=== PATIENT | male | born 1955 | race Caucasian/White ===

== ENCOUNTER → 2020-08-30 14:10 | Outpatient (BNVA) | payer MEDICARE, MEDICAID, SELFPAY | PROVIDERS: PCP Internal Medicine; Referring Provider Internal Medicine; Visit Provider Family Medicine Adult Medicine | DX: M54.16 Radiculopathy, lumbar region (principal); C02.9 Malignant neoplasm of tongue, unspecified | CPT/HCPCS: 99202 ==

== ENCOUNTER → 2020-09-18 11:48 | Outpatient (BNVA) | payer MEDICARE, MEDICAID, SELFPAY | PROVIDERS: PCP Internal Medicine; Referring Provider Internal Medicine; Visit Provider Family Medicine Adult Medicine | DX: M54.16 Radiculopathy, lumbar region (principal); F11.10 Opioid abuse, uncomplicated | CPT/HCPCS: 99212 ==

== ENCOUNTER 2020-11-10 08:41 | Emergency (ER) | payer MEDICARE, MEDICAID, SELFPAY ==
[2020-11-10 08:49] VITALS: BP 150/78; PULSE 64; RESP 20; TEMP 36.8; O2SAT 97; BMI 24.4
--- NOTE | 2020-11-10 08:52 | ED_ITS ---
HPI - General Adult General Chief complaint: Abdominal Pain Stated complaint: Abdominal pain/ Vomiting Time Seen by Provider: 11/10/20 08:46 Source: EMS Mode of arrival: EMS Limitations: no limitations History of Present Illness HPI narrative: This is a 65-year-old male with history of arthritis, gastroesophageal reflux disease lumbar radiculopathy chronic opiate abuse as well as apparently tongue cancer being followed by pain management here and being treated of with radiation therapy for tongue cancer at the [facility] complaint nausea and vomiting in the epigastrium with associated abdominal pain since last night. He otherwise denies any recent travel or recent illness. Denies any weight loss or weight gain. Related Data Home Medications Medication Instructions Recorded Confirmed calcium carbonate 200 mg calcium 200 mg PO BID 08/30/20 09/18/20 (500 mg) chewable tablet omeprazole magnesium 20 mg 20 mg PO DAILY 08/30/20 09/18/20 tablet,delayed release ibuprofen 800 mg tablet 800 mg PO TID 09/18/20 09/18/20 Previous Rx's Medication Instructions Recorded buprenorphine 8 mg-naloxone 2 mg 1 film SUBLINGUAL DAILY 7 Days #14 10/03/20 sublingual film ea omeprazole magnesium [Prilosec OTC] 20 mg PO BID 7 Days #14 tab 11/10/20 ondansetron HCl [Zofran] 4 mg PO Q8H PRN #10 tab 11/10/20 Allergies Allergy/AdvReac Type Severity Reaction Status Date / Time penicillin G [Penicillin G] Allergy Severe ANAPHYLAXIS Verified 09/18/20 12:04 bee pollen [BEE STINGS] Allergy Unknown SWELLING Verified 09/18/20 12:04 Review of Systems Review of Systems: Constitutional: No Weight loss, No Fever, No Chills, No Night Sweats, No Fatigue, No Malaise ENT/Mouth: No Hearing loss, No Ear Pain, No Nasal Congestion, No Sinus Pain, No Hoarseness, No sore throat, No Rhinorrhea, No Swallowing Difficulty Eyes: No Eye Pain, No Swelling, No Redness, No Foreign Body, No Discharge, No Vision Changes Cardiovascular: No Chest Pain, No SOB, No Dyspnea on Exertion, No Orthopnea, No Edema, No Palpitations Respiratory: No Cough, No Sputum, No Wheezing, No Dyspnea Gastrointestinal: As noted in HPI Genitourinary: No Dysuria, No Urinary Frequency, No Hematuria, No Urinary Incontinence, No Urgency, No Flank Pain Musculoskeletal: No joint pain, No Myalgias, No Joint Swelling Skin: No Skin Lesions, No rash Neuro: No Weakness, No Numbness, No Paresthesias, No Loss of Consciousness, No Dizziness, No Headache Psych: No Social Issues Heme/Lymph: No Bruising, No Bleeding,No Lymphadenopathy Endocrine: No Polyuria, No Polydipsia, No Temperature Intolerance Yes all other systems are reviewed and are negative [facility] Past Medical History Medical History (Updated 11/11/20 @ 00:00 by Ashley Skaggs) Arthritis Cancer of tongue GERD (gastroesophageal reflux disease) Opioid abuse Right lumbar radiculopathy Social History Social History (Updated 08/30/20 @ 15:26 by Gilberto Jewell DO) Alcohol intake: never Smoking Status: Current every day smoker Use of substances other than those prescribed or required for medical reasons: No Advance Directives: No Advance Directives Information Provided: No 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 Physical Exam Vital Signs: Vital Signs: Last Vital Signs Temp 98.3 F 11/10/20 16:00 Pulse 66 11/10/20 16:00 Resp 16 11/10/20 16:00 BP 157/84 H 11/10/20 16:00 Pulse Ox 100 11/10/20 16:00 Body Mass Index 24.4 Reviewed Const: General: in distress (Due to pain, does appear anxious type) mild; No intoxicated appearing Nutritional Appearance: average body habitus Orientation/consciousness: patient oriented x3 HENMT: Head: Yes normal to inspection Ears: hearing grossly normal b ilaterally Eyes: General: appearance normal, both eyes and all related structures Visual Francisco: normal visual francisco by confrontation Neck: Neck: Yes normal visual inspection, No positive Brudzinski's sign, No positive Kernig's sign and No tender Thyroid: Thyroid normal Chest: Chest palpation & inspection: normal inspection of the chest Resp: Effort & Inspection: normal respiratory effort Auscultation: clear to auscultation bilaterally Cardio: Jugular venous distension: no JVD Rhythm: regular rhythm Heart sounds: S1 normal heart sound present and S2 normal heart sound present GI: Inspection: Yes normal to inspection Palpation (GI): Soft to palpation Percussion: Yes normal to percussion Auscultation: normal bowel sounds : General: Yes no CVA tenderness Back/Spine/Pelvis: Back: no CVA tenderness Skin: General skin exam: no rashes or lesions noted Neuro: General: patient oriented x3 Extrem: General: Yes normal to inspection Course Course Course Narrative: In review unfortunate 65-year-old male with history of tongue CA currently undergoing radiation at [facility] being followed by [facility] [place] has chronic pain in relation to this being followed by pain management here and his primary care this is somewhat complicated by his history of opiate abuse with med seeking type behaviors. Directly upon arrival seems agitated states he has a lot of pain and does not understand why he has to wait through the triage process to get his IV pain medicine. He specifically declined p.o. medicine shirley t feels that IV Dilaudid works better. Given this workup was initiated including labs CT of the abdomen pelvis and pain management with Dilaudid and antiemetic. Patient was monitored in the ED resting comfortably about 45 minutes past became agitated again stated that he needs more pain medication offered p.o. declined this, being accusatory stating that not properly treating his pain he was again given another dose of IV Dilaudid while awaiting the CT results abdomen pelvis in the meantime in between he ambulated to bathroom without problem drinking fluids. CT of the abdomen pelvis with IV contrast did not show any acute intra-abdominal process. Did show mild constipation. There was new pulmonary nodule in the right lower lobe not seen previously thus CT of the chest given history of CA rule out Mets and again he demanded IV medication advised that a Po will with work better and last longer reluctantly he took the OxyContin 20 mg p.o. which he is prescribed. He does report to me that it is the weekend and does not feel that he has enough medication at home and needs a new prescription for pain medicine. [place] prescription monitoring program reviewed has been getting regular pain medication and several prescriptions in the last week or so most recently 3 days ago he was given 20 mg OxyContin 42 tablets for [address]. [address] of the chest did not show any acute findings as he has been resting comfortably in the ED for last 1 hour I went over to bedside to review his findings with him he has agreeable requesting another narcotic prescription for home. Given that he is enrolled in pain management and also has had multiple prescription refills and most recently 3 days ago for 7 day supply of 20 mg OxyContin and his history my strong suspicion for misuse of his prescriptions and he does state to me has 14 tablets of this left. Advised that no additional scripts will be provided to him for narcotics alternative could be provided which he declined. Will discharge home with short course PPI, Zofran and follow up with his primary care, pain management and [facility]. Medical Decision Making Lab Data Result diagrams: 11/10/20 09:01 11/10/20 09:01 Labs: Lab Results 11/10/20 11/10/20 11/10/20 Range/Units 09:01 09:01 09:01 WBC 6.1 (4.8-10.8) X10*3/uL RBC 4.28 L (4.60-5.80) X10*6/uL Hgb 13.4 L (14.0-18.0) g/dl Hct 40.1 L (42-52) % MCV 93.7 (80-98) fL MCH 31.3 (27.0-33.0) pg MCHC 33.4 (31.0-36.0) g/dl RDW 12.6 (11.0-16.0) % Plt Count 275 (160-400) X10*3/uL MPV 9.2 L (9.4-12.4) fL Immature Gran % (Auto) 0.2 (0.0-0.4) % Neut % (Auto) 85.4 H (45-73) % Lymph % (Auto) 6.6 L (20-40) % Forest % (Auto) 7.3 (2-11) % Eos % (Auto) 0.2 (0-4) % Baso % (Auto) 0.3 (0-2) % Lymph # (Auto) 0.4 L (1.2-4.9) X10*3/uL Forest # (Auto) 0.4 (0.1-1.2) X10*3/uL Eos # (Auto) 0.0 (0.0-0.4) X10*3/uL Baso # (Auto) 0.0 (0.0-0.2) X10*3/uL Abs Immat Gran (auto) 0.01 (0.00-0.03) X10*3/uL Absolute Neuts (auto) 5.2 (2.0-8.3) X10*3/uL Absolute Nucleated RBC 0.000 (0.0-0.012) X10*3/uL Nucleated RBC % (auto) 0.0 (0.0-0.2) /100WBC Smear Tech's Comments VERIFIED PT 11.6 (10.8-13.0) SEC INR 1.0 (0.9-1.1) APTT 33.1 (24.1-38.0) SEC Sodium 140 (135-145) mmol/L Potassium 4.1 (3.3-5.1) mmol/L Chloride 105 (96-108) mmol/L Carbon Dioxide 22 (22-29) mmol/L Anion Gap 17 (12-20) BUN 21 H (9-16) mg/dL Creatinine 0.82 (0.5-1.4) mg/dL Estim Creat Clear Calc 98.2 Estimated GFR > 60 Random Glucose 154 H (60-115) mg/dL Calcium 9.9 (8.4-10.2) mg/dL Total Bilirubin 0.7 (0.0-1.0) mg/dL AST 17 (5-37) U/L ALT 11 (0-40) U/L Alkaline Phosphatase 66 (39-117) U/L Total Protein 7.5 (6.5-8.0) g/dL Albumin 4.5 (3.5-5.0) g/dL Discharge Plan Discharge Clinical Impression: Nausea & vomiting Patient Disposition: Home, Self-Care Instructions: Acute Nausea and Vomiting (ED) Additional Instructions: Please follow-up with oncology team on Thursday Follow-up with pain management on Thursday as well He filled a 7 day supply of your pain medications 3 days ago you have remainder 4 days Please take medication only as prescribed Please take your anti nausea medication prescribed (Zofran) Take your anti acid medication prescribed (Prilosec) Return if any concerns or worsening symptoms Thank you Prescriptions: New omeprazole magnesium [Prilosec OTC] 20 mg tablet,delayed release (DR/EC) 20 mg PO BID 7 Days Qty: 14 RF: 0 ondansetron HCl [Zofran] 4 mg tablet 4 mg PO Q8H PRN (Reason: nausea and vomiting) Qty: 10 RF: 0 No Action buprenorphine-naloxone [Suboxone] 8-2 mg film 1 film sublingual DAILY 7 Days Qty: 14 RF: 0 ibuprofen 800 mg tablet 800 mg PO TID RF: 0 omeprazole magnesium [Prilosec OTC] 20 mg tablet,delayed release (DR/EC) 20 mg PO DAILY RF: 0 calcium carbonate [Tums] 200 mg calcium (500 mg) tablet,chewable 200 mg PO BID RF: 0 Referrals: Kishore Jones MD [Primary Care Provider] - 1 week Interventions: ED Discharge Assessment Last Done: 11/10/20 16:02 Discharge Date/Time: 11/10/20 16:05
[2020-11-10 09:06] LABS: Basophils Percent Auto 0.3 % (0-2); Eosinophils Percent Auto 0.2 % (0-4); Hematocrit 40.1 % (42-52); Hemoglobin 13.4 g/dl (14.0-18.0); Imm Gran Abs Auto 0.01 X10*3/uL (0.00-0.03); Imm Gran Pct Auto 0.2 % (0.0-0.4); Lymphocytes Absolute Auto 0.4 X10*3/uL (1.2-4.9); Lymphocytes Percent Auto 6.6 % (20-40); MANUAL DIFF FLAG SCAN; Mean Corpuscular HGB Conc 33.4 g/dl (31.0-36.0); Mean Corpuscular Hemoglobin 31.3 pg (27.0-33.0); Mean Corpuscular Volume 93.7 fL (80-98); Mean Platelet Volume 9.2 fL (9.4-12.4); Monocytes Absolute Auto 0.4 X10*3/uL (0.1-1.2); Monocytes Percent Auto 7.3 % (2-11); Neutrophils Absolute Auto 5.2 X10*3/uL (2.0-8.3); Neutrophils Percent Auto 85.4 % (45-73); Platelet Count 275 X10*3/uL (160-400); Red Blood Count 4.28 X10*6/uL (4.60-5.80); Red Cell Distribution Width 12.6 % (11.0-16.0); SCAN SMEAR FLAG 1; White Blood Count 6.1 X10*3/uL (4.8-10.8)
[2020-11-10] MEDS: 0.9 % Sodium Chloride 1,000 ML 999 ML IV (09:08)
[2020-11-10] MEDS: Lidocaine HCl Viscous 2 % 15 ML SOLUTION 10 ML MUCOUS MEM (09:09)
[2020-11-10] MEDS: LORazepam 2 MG/ML VIAL 0.5 MG IVPUSH (09:09)
[2020-11-10] MEDS: Magnesium Hydrox/Alum Hydrox 30 ML ORAL.SUSP PO (09:09)
[2020-11-10] MEDS: HYDROmorphone HCl 1 MG/ML SYRINGE IVPUSH (09:09)
[2020-11-10] MEDS: ondansetron HCL 4 MG/2 ML VIAL IVPUSH (09:09)
[2020-11-10 09:13] LABS: Prothrombin Time 11.6 SEC (10.8-13.0)
[2020-11-10 09:15] LABS: Partial Thromboplastin Time 33.1 SEC (24.1-38.0)
[2020-11-10 09:23] LABS: SLIDE REVIEW VERIFIED
[2020-11-10 09:33] LABS: Alanine Aminotransferase 11 U/L (0-40); Albumin Level 4.5 g/dL (3.5-5.0); Alkaline Phosphatase 66 U/L (39-117); Anion Gap 17 (12-20); Aspartate Amino Transferase 17 U/L (5-37); Bilirubin Total 0.7 mg/dL (0.0-1.0); Blood Urea Nitrogen 21 mg/dL (9-16); Calcium 9.9 mg/dL (8.4-10.2); Carbon Dioxide 22 mmol/L (22-29); Chloride 105 mmol/L (96-108); Creatinine Clr Calc Pharmacy 98.2; Estimated Glomerular Filt Rate > 60; Glucose Random 154 mg/dL (60-115); Potassium 4.1 mmol/L (3.3-5.1); Sodium 140 mmol/L (135-145); Total Protein 7.5 g/dL (6.5-8.0)
--- NOTE | 2020-11-10 10:36 | PC.NURSE ---
pt sleeping since medicated.
[2020-11-10 10:37] VITALS: O2SAT 98
--- NOTE | 2020-11-10 11:06 | CT_ITS ---
EXAMINATION: CT ABDOMEN AND PELVIS WITH CONTRAST CLINICAL INFORMATION: Abdominal pain. COMPARISON: None TECHNIQUE: Multidetector volumetric images were obtained from the superior aspect of the liver through the pubic symphysis following administration 85 mL of Omnipaque 350 intravenous contrast. Sagittal and coronal reformatted images were obtained on the technologist's workstation. Oral contrast: No This CT examination was performed using dose optimization techniques as appropriate, variously including the following: *Automated exposure control *Adjustment of mA and/or kV according to patient size (this includes techniques or standardized protocols for targeted exams where dose is matched to indication/reason for exam; i.e. extremities or head) *Use of iterative reconstruction technique DLP: 541 mGy-cm FINDINGS: LUNG BASES: The lung bases are hyperinflated but no acute process seen. 3 mm nodule is seen in right lower lobe on axial image 1/7. It is new since previous CT chest 10/01/2019. No additional nodules seen. There is minimal atelectatic changes right lower lobe. Heart size is normal. LIVER, GALLBLADDER, AND BILIARY TREE: The liver is enlarged in size, normal shape and density. There is a punctate 4 mm calcification right hepatic lobe adjacent to the diaphragm on axial image 12/3. No intrahepatic ductal dilatation seen. The gallbladder is distended with no evidence of radiopaque gallstones, gallbladder wall thickening, or obvious pericholecystic inflammatory changes. PANCREAS: Unremarkable. SPLEEN: Unremarkable. ADRENAL GLANDS: There is a 1.7 cm left adrenal nodule measuring 26 Hounsfield units., Stable. The right adrenal gland appears unremarkable. KIDNEYS AND URETERS: The kidneys are normal in size, shape, and attenuation. No hydronephrosis, hydroureter, or calculi seen. No perinephric stranding. BLADDER: Unremarkable. GASTROINTESTINAL TRACT: There is scattered stool and gas seen throughout the colon without distention. The small bowel loops are normal caliber. Appendix is not visualized. No free air or free fluid seen. ABDOMINAL WALL: There is a right anterior abdomen wall hernia repair with mesh in place. No recurrent hernia seen. LYMPH NODES: Normal. VASCULAR: Unremarkable. PELVIC VISCERA: Unremarkable. OSSEOUS STRUCTURES: There is a right intraforaminal medullary justa likely for an old fracture. There are degenerative disc changes and vacuum disc phenomenon with spondylosis at every disc level. CT/CT abdomen pelvis w con IMPRESSION: No acute intra-abdominal process seen. Mild constipation. Appendix is not seen. No bowel obstruction. New pulmonary nodule right lower lobe not seen previously. Stable left adrenal enhancing 1.7 cm nodule. Evidence of right lower anterior abdominal wall hernia repair with mesh in place. No recurrent hernia seen.
[2020-11-10] MEDS: HYDROmorphone HCl 0.5 MG/0.5 ML SYRINGE IVPUSH (11:24)
[2020-11-10 11:26] VITALS: BP 148/77; PULSE 63; RESP 20; TEMP 36.8; O2SAT 99
--- NOTE | 2020-11-10 11:30 | PC.NURSE ---
patient a&ox3, patient c/o severe 10/10 abd pain, pt medicated for pain per order, pt requesting baking soda water, will speak with provider, vss, will continue to monitor.
--- NOTE | 2020-11-10 11:44 | PC.NURSE ---
pt to ct scan
[2020-11-10] MEDS: iohexoL 350 MG/ML 100 ML INFUS..BTL IV (11:49)
--- NOTE | 2020-11-10 12:38 | PC.NURSE ---
patient ambulating up and down hallways moaning due to abd pain, pt has steady gait while ambulating, pt awaiting ct scan results, will continue to monitor.
--- NOTE | 2020-11-10 13:03 | CT_ITS ---
EXAMINATION: CT CHEST WITHOUT CONTRAST CLINICAL INFORMATION: 65-year-old male patient with history of throat cancer. COMPARISON: CT the chest on 10/01/2019. CT of the abdomen and pelvis done earlier today. TECHNIQUE: Multidetector volumetric CT imaging of the chest was done. Axial MIP volume rendering provided. Sagittal, coronal, and MIP axial reformatted images were obtained. This CT examination was performed using dose optimization techniques as appropriate, variously including the following: *Automated exposure control *Adjustment of mA and/or kV according to patient size (this includes techniques or standardized protocols for targeted exams where dose is matched to indication/reason for exam; i.e. extremities or head) *Use of iterative reconstruction technique DLP: 317 mGy-cm FINDINGS: OCCUPATIONAL THERAPY SUPERVISOR: Hyperaerated lungs. LUNGS: The following observations are enumerated: 1. Calcified 0.2 cm nodule apex right lung. Series 9, image 72. No change. 2. Slightly spiculated peripheral 0.4 cm nodule anterior segment right upper lobe. Series 9, image 271. No change. 3. Ovoid 0.3 cm peripheral nodule right lower lobe. Series 9, image 374. No change. 4. Linear scarring right lower lobe. Series 9, images 291-364. 5. Focal pleural thickening and scarring posterior right costophrenic sulcus medial right hemithorax. Series 9, image 471. Series 7, image 78. Similar. 6. Apical pleural thickening left apex. Series 9, image 52. No change. 7. Minor scarring lingular inferior segment of the left upper lobe. Series 9, image 462. No change. 8. A 0.3 cm soft tissue nodule left lower lobe peripherally. Series 9, image 350. No change. MEDIASTINUM: The mediastinum is normal. No lymphadenopathy. PLEURA: There is no pleural effusion. No pleural mass or thickening. There is a small fat containing diaphragmatic hernia involving the posterior medial aspect of the left hemidiaphragm. Series 7, image 54. Series 6, image 68. AXILLA: No lymphadenopathy. UPPER ABDOMEN: Contrast fills both renal collecting systems from the previous IV injection done earlier today. Small left adrenal nodule as previously described. Focal liver capsular calcification beneath the dome of the right hemidiaphragm. OSSEOUS STRUCTURES: Compression fracture T4 vertebral body. Multiple healed right-sided rib fractures CT/CT chest wo con IMPRESSION: No suspicious metastatic disease in the lungs.
[2020-11-10] MEDS: oxyCODONE HCl ER 10 MG TAB.ER.12H 20 MG PO (13:13)
--- NOTE | 2020-11-10 13:17 | PC.NURSE ---
patient was again medicated with po meds for pain, patient continuously asking for additional pain medications with a c/o 10/10 abdominal pain, pt gets oob and is ambulating with steady gait in hallways despite his 10/10 pain, vitals remain stable, will continue to monitor.
[2020-11-10 13:18] VITALS: BP 151/72; PULSE 64; RESP 20; TEMP 36.8; O2SAT 98
--- NOTE | 2020-11-10 15:18 | PC.NURSE ---
patient attention seeking, ambulating in the hallway moaning loudly due to his complaint of abdominal pain but only only when near staff.
[2020-11-10 16:00] VITALS: BP 157/84; PULSE 66; RESP 16; TEMP 36.8; O2SAT 100
== END 2020-11-10 16:05 | disposition home or self-care (01) ==
PROVIDERS: Nurse Practitioner Primary Care; Emergency Provider Emergency Medicine; PCP Internal Medicine
DX: R11.2 Nausea with vomiting, unspecified (principal); F11.20 Opioid dependence, uncomplicated; Z76.5 Malingerer [conscious simulation]; C02.9 Malignant neoplasm of tongue, unspecified; K21.9 Gastro-esophageal reflux disease without esophagitis; Z92.3 Personal history of irradiation
CPT/HCPCS: 36415; 71250; 74177; 80053; 85025; 85610; 85730; 96361; 96374; 96375; 96376; 99284; J1170; J2060; J2405; Q9967

== ENCOUNTER 2021-10-14 11:42 | Outpatient (REF) | payer OTHER, MEDICAID, SELFPAY ==
[2021-10-14 12:34] LABS: Influenza A PCR NEGATIVE (Negative); Influenza B PCR NEGATIVE (Negative); Resp Syncy Virus RNA Qual PCR NEGATIVE (Negative); SARS COV2 PCR INHOUSE NEGATIVE (Negative)
== END 2021-10-14 11:43 | disposition home or self-care (01) ==
LOC: HO.LNP 11:42
PROVIDERS: Visit Provider Internal Medicine
DX: Z20.822 Contact with and (suspected) exposure to COVID-19 (principal); J02.9 Acute pharyngitis, unspecified
CPT/HCPCS: 0241U

== ENCOUNTER 2021-12-10 12:05 | Outpatient (REF) | payer OTHER, MEDICAID, SELFPAY ==
--- NOTE | ~2021-12-10 | PE_ITS ---
EXAMINATION: Fluorine-18 FDG PET/CT Scan CLINICAL INDICATION: Subsequent treatment management.. Larynx cancer, status post radiation therapy November,. PROCEDURE: 85 minutes following the intravenous administration of 9.0 mCi of fluorine 18 FDG, images from the base of the skull to the mid thighs were obtained using a combined PET/CT scanner with CT scan based attenuation correction. No oral contrast was administered. No intravenous contrast was administered. Transverse, coronal, sagittal, and volume reconstruction projections were obtained. The patient's blood glucose as determined by a finger stick, was 108 mg/dl immediately prior to injection. Total CT exam dose-length product 278.18 mGy-cm * These CT images were obtained using dose optimization techniques as appropriate, variously including the following: Automated exposure control * Adjustment of mA and/or kV according to patient size (this includes techniques or standardized protocols for targeted exams where dose is matched to indication/reason for exam; i.e. extremities or head) * Use of iterative reconstruction technique COMPARISON: No previous PET/CT scan is available for comparison. CT scans of the chest, abdomen and pelvis dated 11/10/2020 are available for comparison. FINDINGS: (Slice numbers described in this report are numbered superiorly to inferiorly with slice #1 in the head) NECK AND VISUALIZED HEAD: There is an FDG avid right supraglottic soft tissue density which extends from the right arytenoid cartilage superiorly to the inferior aspect of the right vallecula. This shows SUVmax 7.9, slice 59/267. The abnormal FDG activity approaches but does not cross the midline. There are no additional foci of abnormal FDG activity in the neck or visualized head. There is no cervical lymphadenopathy. THORAX: There is an FDG avid irregular nodular opacity posteriorly in the left upper lobe showing SUVmax 4.0, slice 99/267. This opacity was not present on the prior diagnostic CT scan dated 11/10/2020. There is an additional right middle lobe subcentimeter nodule that shows mild FDG activity, SUVmax 2.8, slice 129/267 and measuring 0.7 x 0.5 cm in largest transverse dimension on the corresponding CT images. There is additional mild abnormal FDG activity laterally in the inferior lingula associated with tree-in-bud and groundglass opacities on the corresponding CT images, showing SUVmax 2.8, slice 116/267. Anterior to these there additional small groundglass opacities in the lingula that are weakly FDG avid. All of these findings are new since the prior 11/10/2020 CT scan. Scattered additional small subcentimeter nodules are present bilaterally and these are all too small to be characterized on the FDG PET images. There is no pleural or pericardial fluid, or pneumothorax. There is no mediastinal, supraclavicular, or axillary lymphadenopathy. Mildly increased FDG activity is present in subcentimeter upper pretracheal lymph nodes, SUVmax 2.6, slice 90/267. ABDOMEN AND PELVIS: There is a mildly FDG avid left adrenal nodule corresponding to a 1.7 cm nodule which is unchanged in appearance on the CT images from the 11/10/2020 CT scan. The right adrenal gland is unremarkable. There are no other foci of abnormal FDG activity in the abdomen or pelvis. There is mild FDG activity throughout the gastrointestinal tract with no suspicious focal component, likely physiological. There is diverticulosis without evidence of diverticulitis. The liver has a subcentimeter chronic calcification in the dome of the right lobe anteriorly, but is otherwise unremarkable. The gallbladder and spleen are unremarkable. There is no retroperitoneal, mesenteric, pelvic or inguinal lymphadenopathy. The pelvic organs are unremarkable. MUSCULOSKELETAL: There are no foci of abnormal FDG activity in the osseous structures. There is diffusely decreased activity in the cervical and upper thoracic spine, likely due to prior radiation therapy. There are degenerative changes in the spine but no suspicious sclerotic or lytic lesions are visualized. A right femoral intramedullary justa is in place. VASCULAR: No significant abnormalities are present. PET/PET CT fusion skull to thigh IMPRESSION: 1. A right supraglottic FDG avid soft tissue mass is noted as described above and is most consistent with a malignant lesion. 2. Several nodular opacities are present in the lungs and these are suspicious for metastases. The most prominent of these are in the left upper lobe and right middle lobe. Additional opacities in the lingula are FDG avid and are nonspecific. These may be inflammatory or malignant in etiology. A single upper pretracheal subcentimeter lymph node shows mild FDG activity and this is nonspecific and may be inflammatory or malignant in etiology. Further characterization of all of these chest abnormalities with a current diagnostic CT scan of the chest is recommended. 3. A 1.7 cm left adrenal nodule is stable since 11/10/2020 and shows mild FDG activity, and is likely benign. 4. No additional abnormalities suspicious for other metastatic or malignant lesions are noted.
== END 2021-12-10 12:06 | disposition home or self-care (01) ==
LOC: HO.PET 12:05
PROVIDERS: PCP Internal Medicine; Visit Provider Otolaryngology
DX: Z13.89 Encounter for screening for other disorder (principal)

== ENCOUNTER 2022-01-27 12:35 | Outpatient (REF) | payer MEDICARE, MEDICAID, SELFPAY ==
[2022-01-27 12:57] LABS: MANUAL DIFF FLAG NO
[2022-01-27 13:24] LABS: Basophils Absolute Auto 0.1 X10*3/uL (0.0-0.2); Basophils Percent Auto 0.9 % (0-2); Eosinophils Absolute Auto 0.1 X10*3/uL (0.0-0.4); Eosinophils Percent Auto 2.4 % (0-4); Hematocrit 32.1 % (42.0-52.0); Hemoglobin 9.9 g/dl (14.0-18.0); Imm Gran Abs Auto 0.02 X10*3/uL (0.00-0.03); Imm Gran Pct Auto 0.4 % (0.0-0.4); Lymphocytes Absolute Auto 0.8 X10*3/uL (1.2-4.9); Lymphocytes Percent Auto 14.1 % (20-40); Mean Corpuscular HGB Conc 30.8 g/dl (31.0-36.0); Mean Corpuscular Hemoglobin 29.4 pg (27.0-33.0); Mean Corpuscular Volume 95.3 fL (80.0-98.0); Mean Platelet Volume 8.6 fL (9.4-12.4); Monocytes Absolute Auto 0.6 X10*3/uL (0.1-1.2); Monocytes Percent Auto 10.6 % (2-11); Neutrophils Absolute Auto 3.9 x10*3/uL (2.0-8.3); Neutrophils Percent Auto 71.6 % (45-73); Platelet Count 372 X10*3/uL (160-400); Red Blood Count 3.37 X10*6/uL (4.60-5.80); Red Cell Distribution Width 13.3 % (11.0-16.0); White Blood Count 5.4 X10*3/uL (4.8-10.8)
[2022-01-27 13:51] LABS: Alanine Aminotransferase 15 U/L (0-40); Albumin Level 3.9 g/dL (3.5-5.0); Alkaline Phosphatase 101 U/L (39-117); Anion Gap 13 (12-20); Aspartate Amino Transferase 22 U/L (5-37); Bilirubin Total 0.3 mg/dL (0.0-1.0); Blood Urea Nitrogen 16 mg/dL (9-16); Calcium 9.7 mg/dL (8.4-10.2); Carbon Dioxide 25 mmol/L (22-29); Chloride 104 mmol/L (96-108); Estimated Glomerular Filt Rate > 60; Glucose Random 91 mg/dL (60-115); Potassium 4.2 mmol/L (3.3-5.1); Sodium 138 mmol/L (135-145); Total Protein 6.7 g/dL (6.5-8.0)
[2022-01-27 14:14] LABS: Free T4 (Free Thyroxine) 0.62 ng/dL (0.71-1.85); Thyroid Stimulating Hormone 23.28 uIU/mL (0.32-4.0)
== END 2022-01-27 12:36 | disposition home or self-care (01) ==
LOC: HO.LAB 12:35
PROVIDERS: PCP Internal Medicine; Visit Provider Internal Medicine
DX: J44.9 Chronic obstructive pulmonary disease, unspecified (principal); K21.9 Gastro-esophageal reflux disease without esophagitis; R63.4 Abnormal weight loss; C06.9 Malignant neoplasm of mouth, unspecified
CPT/HCPCS: 36415; 80053; 84439; 84443; 85025

== ENCOUNTER 2022-03-17 14:20 | Outpatient (REF) | payer MEDICARE, MEDICAID, SELFPAY ==
[2022-03-17 15:59] LABS: Free T4 (Free Thyroxine) 0.69 ng/dL (0.71-1.85); Thyroid Stimulating Hormone 12.33 uIU/mL (0.32-4.0)
== END 2022-03-17 14:21 | disposition home or self-care (01) ==
LOC: HO.LAB 14:20
PROVIDERS: PCP Internal Medicine; Visit Provider Internal Medicine
DX: E03.9 Hypothyroidism, unspecified (principal)
CPT/HCPCS: 36415; 84439; 84443

== ENCOUNTER 2022-04-03 00:38 | Emergency (ER) | payer MEDICARE, MEDICAID, SELFPAY ==
[2022-04-03 00:44] VITALS: BP 152/86; PULSE 76; RESP 16; TEMP 36.9; O2SAT 98; BMI 23.1
[2022-04-03 00:47] VITALS: BP 152/86; PULSE 70; RESP 20; TEMP 36.9; O2SAT 98
--- NOTE | 2022-04-03 00:54 | PC.NURSE ---
to note pt has tracheostomy, pt nonverbal, communicates with white board.
--- NOTE | 2022-04-03 01:00 | ED.ABDPAIN ---
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 Related Data Home Medications Medication Instructions Recorded Confirmed calcium carbonate 200 mg calcium 200 mg PO BID 08/30/20 09/18/20 (500 mg) chewable tablet (Tums) omeprazole magnesium 20 mg 20 mg PO DAILY 08/30/20 09/18/20 tablet,delayed release (Prilosec OTC) ibuprofen 800 mg tablet 800 mg PO TID 09/18/20 09/18/20 Previous Rx's Medication Instructions Recorded buprenorphine 8 mg-naloxone 2 mg 1 film sublingual DAILY 7 days #14 10/03/20 sublingual film (Suboxone) ea omeprazole magnesium 20 mg 20 mg PO BID 7 days #14 tabs 11/10/20 tablet,delayed release (Prilosec OTC) ondansetron HCl 4 mg tablet 4 mg PO Q8H PRN nausea and 11/10/20 (Zofran) vomiting #10 tabs polyethylene glycol 3350 17 17 g PO DAILY #510 grams 04/03/22 gram/dose oral powder (Miralax) sennosides 8.6 mg tablet (senna) 17.2 mg PO BEDTIME PRN 04/03/22 constipation #20 tabs Allergies Allergy/AdvReac Type Severity Reaction Status Date / Time penicillin G [Penicillin G] Allergy Severe ANAPHYLAXIS Verified 09/18/20 12:04 bee pollen [BEE STINGS] Allergy Unknown SWELLING Verified 09/18/20 12:04 Review of Systems Review of Systems Yes all other systems are reviewed and are negative PMF Past Medical History Medical History Arthritis Social History Social History Household Members Other:: lives with his girlfriend Alcohol intake: never Advance Directives: No Advance Directives Information Provided: Yes 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 Oriented X3. No acute distress. ENT: Pharynx normal. Oral Mucosa moist Neck: Normal inspection. Neck supple. Tracheostomy in place CVS: Normal heart rate and rhythm. Pulses normal. Respiratory: No respiratory distress. Equal air entry bilateral, no wheezing/rales/rhonchi Abdomen: Soft, mild diffuse tenderness Bowel sounds are present, no mass palpable, no CVA tenderness rectal: Hard stool, manual disimpaction done Skin: Skin warm and dry. Normal skin color. Normal skin turgor. Extremities: No lower extremity edema. No calf tenderness Neuro: Oriented X 3. No motor deficit. MDM - Abdominal Pain MDM Narrative Medical decision making narrative: Manual disimpaction was done patient had a good bowel movement after that feel comfortable discharging home Discharge Plan Discharge Clinical Impression: Constipation Patient Disposition: Home, Self-Care Instructions: Constipation (ED) Additional Instructions: Drink plenty of fluids Take MiraLax daily For severe constipation take 2 tablets of senna daily Prescriptions: New polyethylene glycol 3350 [Miralax] 17 gram/dose powder 17 g PO DAILY Qty: 510 0RF sennosides [senna] 8.6 mg tablet 17.2 mg PO BEDTIME PRN (Reason: constipation) Qty: 20 0RF No Action buprenorphine-naloxone [Suboxone] 8-2 mg film 1 film sublingual DAILY 7 Days Qty: 14 0RF omeprazole magnesium [Prilosec OTC] 20 mg tablet,delayed release (DR/EC) 20 mg PO BID 7 Days Qty: 14 0RF ondansetron HCl [Zofran] 4 mg tablet 4 mg PO Q8H PRN (Reason: nausea and vomiting) Qty: 10 0RF ibuprofen 800 mg tablet 800 mg PO TID omeprazole magnesium [Prilosec OTC] 20 mg tablet,delayed release (DR/EC) 20 mg PO DAILY calcium carbonate [Tums] 200 mg calcium (500 mg) tablet,chewable 200 mg PO BID
[2022-04-03] MEDS: Milk of Magnesia 30 ML ORAL.SUSP PO (01:19)
== END 2022-04-03 01:31 | disposition home or self-care (01) ==
PROVIDERS: Emergency Provider Internal Medicine; PCP Internal Medicine
DX: K59.00 Constipation, unspecified (principal)
CPT/HCPCS: 99283; 99284

== ENCOUNTER → 2024-11-08 10:56 | Outpatient (RCR) | payer MEDICARE, MEDICAID, SELFPAY | END | disposition home or self-care (01) | LOC: HO.OT 01-30 08:56 | PROVIDERS: PCP Internal Medicine; Visit Provider Physician Assistant | DX: I89.0 Lymphedema, not elsewhere classified (principal); C32.8 Malignant neoplasm of overlapping sites of larynx ==